=== PATIENT | male | born 1945 | race Caucasian/White ===

== ENCOUNTER 2022-06-02 00:22 | Emergency (ER) | payer MEDICARE, SELFPAY ==
[2022-06-02 00:25] VITALS: BP 158/109; PULSE 80; RESP 32; TEMP 36.5; O2SAT 95; BMI 22.2
--- NOTE | 2022-06-02 00:27 | ECG_ITS ---
[facility] Test Date: 2022-06-02 Pat Name: Everardo Valdes Department: Room: Gender: Male Rn Gastroenterology: : 1945 Requested By: Chris Lopez Order Number: [id number] Donnelly MD: Leighton Abbott M.D. Measurements Intervals [place] Rate: 83 P: 79 ND: 178 QRS: -43 QRSD: 93 T: 76 QT: 377 QTc: 443 Interpretive Statements SINUS RHYTHM WITH MARKED SINUS ARRHYTHMIA LEFT AXIS DEVIATION [QRS AXIS < -30] INCOMPLETE RIGHT BUNDLE BRANCH BLOCK [90+ ms QRS DURATION, TERMINAL R IN V1/V2, 40+ ms S IN I/aVL/V4/V5/V6] No previous ECG available for comparison Electronically Signed On 06-02-2022 13:17:51 CDT by Leighton Abbott M.D. [id number]
--- NOTE | 2022-06-02 00:48 | XRR_ITS ---
PROCEDURE INFORMATION: Exam: XR Chest Exam date and time: 06/02/2022 12:52 AM Age: 77 years old Clinical indication: Shortness of breath; Additional info: SOB TECHNIQUE: Imaging protocol: Radiologic exam of the chest. Views: 1 view. COMPARISON: No relevant prior studies available. FINDINGS: Lungs: Unremarkable. No consolidation. Tiny nodular foci left upper lobe apex; favor scarring. Pleural spaces: Unremarkable. No pleural effusion. No pneumothorax. Heart/Mediastinum: Unremarkable. No cardiomegaly. Bones/joints: Unremarkable. XR/XR chest 1V portable [id number] IMPRESSION: No acute findings.
[2022-06-02 00:54] LABS: Basophils # 0.1 10^3/uL (0.0-0.1); Basophils % 0.7 %; Eosinophils # 0.4 10^3/uL (0.0-0.8); Eosinophils % 6.3 %; Hematocrit 47.6 % (42.0-52.0); Hemoglobin 15.8 g/dL (11.7-16.6); Lymphocytes # 2.7 10^3/uL (0.8-4.8); Lymphocytes % 38.8 %; Mean Corpuscular HGB Conc 33.2 g/dL (30.0-36.0); Mean Corpuscular Hemoglobin 29.4 pg (28.0-34.0); Mean Corpuscular Volume 88.6 fl (80-94); Mean Platelet Volume 10.4 fL (7.4-10.4); Monocytes # 0.5 10^3/uL (0.2-0.9); Neutrophils # 3.24 10^3/uL (1.8-7.7); Neutrophils % 47.1 %; Nucleated Red Blood Cells % 0 %; Platelet Count 215 10^3/cmm (130-400); Red Blood Count 5.37 10^6/uL (4.1-5.3); Red Cell Distribution Width 13.2 % (12.1-15.1); White Blood Count 6.9 10^3/uL (4.0-10.0)
[2022-06-02] MEDS: ipratropium-albuterol 3 mL Neb INHALATION (01:01)
[2022-06-02 01:04] VITALS: PULSE 64; RESP 21; O2SAT 94
[2022-06-02 01:04] LABS: D Dimer 0.64 ug/mIFEU (0-0.59)
--- NOTE | 2022-06-02 01:08 | ED_ITS ---
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 He presents with increasing shortness of breath for the past few days. He uses an inhaler usually twice a day, and has gone up to 4-5 times a day in the past 3 days. He has a cough. He has some sputum production which is clear. He has been wheezing. He denies any fever. He states his chest hurts with cough. He denies significant leg swelling. MD elicited complaint: shortness of breath and cough Pertinent past history: COPD Onset (ago): day(s) Timing: constant and progressively worsening Severity: moderate Exacerbating factors: lying flat and exertion Relieving factors: bronchodilators (Minimal) Known history of: COPD and asthma Associated symptoms: Reports chest congestion, chest pain, cough and orthopnea; Deny abdominal pain, diaphoresis, fever(s), nausea or vomiting Review of Systems Const: Denies: fever(s) or diaphoresis ENMT: Denies: throat pain Card: Reports: chest pain and orthopnea Resp: Reports: dyspnea, productive cough, wheezing and chest congestion GI: Denies: abdominal pain, nausea, vomiting, diarrhea or melena Neuro: Reports: weakness in extremities (Generalized to some degree) Physical Exam Const: GENERAL APPEARANCE: cooperative, ill appearing and frail appearing NUTRITIONAL APPEARANCE: thin HENMT: COMMON NORMALS: normocephalic and atraumatic HEAD & SCALP: normocephalic and atraumatic FACE & SINUS: normal facial exam and face symmetric Eye: COMMON NORMALS: Equal, round and reactive pupils present and EOMs intact bilaterally PUPIL: Yes Equal, round and reactive pupils present Neck/C-Spine: GENERAL: Yes trachea midline Chest: CHEST: Yes Symmetrical chest wall rise Resp: EFFORT & INSPECTION: Yes tachypneic AUSCULTATION: wheezes (Slight) and diminished lung sounds Cardio: COMMON NORMALS: regular rate and regular rhythm RATE: regular rate RHYTHM: regular rhythm GI: COMMON NORMALS: Normal to inspection, nondistended, normoactive bowel sounds present and Soft to palpation PALPATION: Yes Soft to palpation Extremity: COMMON NORMALS: no pedal edema Neuro: JULIO CESAR COMA SCALE: document GCS findings [place] coma scale eye opening: Spontaneous Julio Cesar coma scale verbal response: Orientated Julio Cesar coma scale motor response: Obey commands [place] coma scale total score: 15 Psych: ACTIVITY/MOTOR BEHAVIOR: Yes appropriate eye contact SPEECH: Yes slow MOOD & AFFECT: Yes depressed mood and Yes tearful Course Vital Signs: Vital signs: Vital Signs Temperature 97.7 F 06/02/22 00:25 Pulse Rate 68 06/02/22 02:37 Respiratory Rate 20 H 06/02/22 02:37 Blood Pressure 142/67 06/02/22 02:37 Pulse Oximetry 96 06/02/22 02:37 Oxygen Delivery Me thod 06/02/22 01:04 Oxygen Flow Rate 2 06/02/22 01:04 MDM - SOB/Dyspnea Medical Decision Making 77-year-old male with a history of asthma. He feels much improved after nebulizer treatment and steroids here. He is off oxygen, satting 95 to 96%. His heart rate 65, blood pressure 140/75. His CBC is normal. His BMP is normal. His troponin was slightly elevated at 17 baseline, and did not change at 2 hours. His EKG shows a sinus rhythm with sinus arrhythmia. He has an incomplete right bundle branch block with normal intervals otherwise. There are no acute ST changes. His age-adjusted D-dimer is negative he has no infiltrates on chest x-ray. He will be allowed home, with coverage for asthma/COPD exacerbation with antibiotics, steroids, and inhalers Lab Data : 06/02/22 00:45 06/02/22 00:45 Labs/Radiology: Radiology Impressions Chest X-Ray 06/02/22 00:48 IMPRESSION: No acute findings. Laboratory Results WBC 6.9 10^3/uL (4.0-10.0) 06/02/22 00:45 RBC 5.37 10^6/uL (4.1-5.3) H 06/02/22 00:45 Hgb 15.8 g/dL (11.7-16.6) 06/02/22 00:45 Hct 47.6 % (42.0-52.0) 06/02/22 00:45 MCV 88.6 fl (80-94) 06/02/22 00:45 MCH 29.4 pg (28.0-34.0) 06/02/22 00:45 MCHC 33.2 g/dL (30.0-36.0) 06/02/22 00:45 RDW 13.2 % (12.1-15.1) 06/02/22 00:45 Plt Count 215 10^3/cmm (130-400) 06/02/22 00:45 MPV 10.4 fL (7.4-10.4) 06/02/22 00:45 Neut % (Auto) 47.1 % 06/02/22 00:45 Lymph % (Auto) 38.8 % 06/02/22 00:45 [place] % (Auto) 7.0 % 06/02/22 00:45 Eos % (Auto) 6.3 % 06/02/22 00:45 Baso % (Auto) 0.7 % 06/02/22 00:45 Neut # (Auto) 3.24 10^3/uL (1.8-7.7) 06/02/22 00:45 Lymph # (Auto) 2.7 10^3/uL (0.8-4.8) 06/02/22 00:45 [place] # (Auto) 0.5 10^3/uL (0.2-0.9) 06/02/22 00:45 Eos # (Auto) 0.4 10^3/uL (0.0-0.8) 06/02/22 00:45 Baso # (Auto) 0.1 10^3/uL (0.0-0.1) 06/02/22 00:45 Nucleated RBC % (auto) 0 % 06/02/22 00:45 Nucleated RBCs # 0.0 /100WBC 06/02/22 00:45 D-Dimer 0.64 ug/mIFEU (0-0.59) H 06/02/22 00:45 Specimen Type Arterial 06/02/22 01:18 Sample Site Radial, right 06/02/22 01:18 ABG pH 7.44 (7.35-7.45) 06/02/22 01:18 ABG pCO2 33.6 mmHg (35-45) L 06/02/22 01:18 ABG pO2 91.1 mmHg (80.0-100.0) 06/02/22 01:18 ABG HCO3 22.6 mmol/L (22-26) 06/02/22 01:18 ABG Base Excess -0.9 mmol/L (-2.0-2.0) 06/02/22 01:18 Brandon Test Pos 06/02/22 01:18 Hematocrit 46.8 % (42-52) 06/02/22 01:18 Hgb O2 Saturation 96.9 % (95-100) 06/02/22 01:18 Carboxyhemoglobin 0.7 %THgb (0.4-20.1) 06/02/22 01:18 Methemoglobin 0.7 % (0.4-1.5) 06/02/22 01:18 Total Hemoglobin 15.3 g/dL (14-18) 06/02/22 01:18 O2 Delivery Device Nc 06/02/22 01:18 O2 Liters/Min 2.0 % 06/02/22 01:18 Flat Folding Machine Operator ID [email or web address] 06/02/22 01:18 Sodium 140 mmol/L (136-145) 06/02/22 00:45 Potassium 3.8 mmol/L (3.5-5.1) 06/02/22 00:45 Chloride 103 mmol/L (98-107) 06/02/22 00:45 Carbon Dioxide 24 mmol/L (22-29) 06/02/22 00:45 Anion Gap 16.8 (5-19) 06/02/22 00:45 BUN 15 mg/dL (8-23) 06/02/22 00:45 Creatinine 0.8 mg/dL (0.7-1.2) 06/02/22 00:45 GFR Calculation Not Reportable 06/02/22 00:45 Glucose 108 mg/dL (65-115) 06/02/22 00:45 Calculated Osmolality 291 mOsm/kg (285-295) 06/02/22 00:45 Lactic Acid 1.2 mmol/L (0.5-2.2) 06/02/22 00:45 Calcium 9.4 mg/dL (8.5-10.5) 06/02/22 00:45 Total Bilirubin 0.5 mg/dL (0.15-1.2) 06/02/22 00:45 AST 29 U/L (0-40) 06/02/22 00:45 ALT 16 U/L (0-41) 06/02/22 00:45 Alkaline Phosphatase 78 U/L (40-130) 06/02/22 00:45 Troponin T Baseline 17 ng/L (0-15) H 06/02/22 00:45 Troponin T 120 Minute 16.64 ng/L (0-15) H 06/02/22 02:36 Delta Troponin T -0.36 ABS# (0-10) L 06/02/22 02:36 NT-Pro-B Natriuret Pep 53 pg/mL (0-450) 06/02/22 00:45 Total Protein 7.4 g/dL (6.6-8.7) 06/02/22 00:45 Albumin 4.6 g/dL (3.5-5.2) 06/02/22 00:45 Globulin 2.8 g/dL (1.3-4.6) 06/02/22 00:45 SARS-CoV-2 Ag (Rapid) Negative (Negative) 06/02/22 02:25 Discharge Plan Discharge Patient Disposition: Home Clinical Impression: Asthma with exacerbation Condition: Stable Prescriptions: New prednisone 20 mg tablet 40 mg PO DAILY 5 Days Qty: 10 0RF ipratropium-albuterol 20-100 mcg/actuation mist 1 puff inhalation Q6H Qty: 4 0RF doxycycline hyclate 100 mg capsule 100 mg PO BID 7 Days Qty: 14 0RF lorazepam 0.5 mg tablet 0.5 mg PO BID PRN (Reason: anxiety) Qty: 7 0RF Discharge Orders: Discharge ED (Routine); Ordered 06/02/22 Ordered By: Chris Spears Patient Instructions: Asthma Exacerbation - Adult Activity Restrictions/Additional Instructions: Medications as directed. Use the prescribed inhaler every 6 hours scheduled for the next 48 hours, then as needed. You may use your albuterol inhaler if needed 1 time between scheduled dosing of the new inhaler. Return for worsening shortness of breath despite treatment, fever greater than 100 despite treatment, worsening chest pain, mental status changes, other concerning symptoms. See your doctor this coming week. Coding Level of Care Code ED Assistant Field Hockey Coach for Zhang Fwholli Exam Comprehensive
[2022-06-02 01:10] LABS: Lactic Sepsis W/Reflex 1.2 mmol/L (0.5-2.2); Troponin(5th) Baseline 17 ng/L (0-15)
[2022-06-02 01:16] VITALS: BP 158/81; PULSE 63; RESP 24; O2SAT 99
[2022-06-02 01:18] LABS: Alanine Aminotransferase 16 U/L (0-41); Albumin Level 4.6 g/dL (3.5-5.2); Alkaline Phosphatase 78 U/L (40-130); Anion Gap 16.8 (5-19); Aspartate Amino Transferase 29 U/L (0-40); Blood Urea Nitrogen 15 mg/dL (8-23); Calcium 9.4 mg/dL (8.5-10.5); Carbon Dioxide 24 mmol/L (22-29); Chloride 103 mmol/L (98-107); Globulin 2.8 g/dL (1.3-4.6); Glucose 108 mg/dL (65-115); NT Pro B Type Natriuretic Pept 53 pg/mL (0-450); Osmolality Calculated 291 mOsm/kg (285-295); Potassium 3.8 mmol/L (3.5-5.1); Sodium 140 mmol/L (136-145); Total Bilirubin 0.5 mg/dL (0.15-1.2); Total Protein 7.4 g/dL (6.6-8.7)
[2022-06-02 01:22] LABS: ABG PCO2 33.6 mmHg (35-45); ABG PH Result 7.44 (7.35-7.45); Arterial Blood Gas Hematocrit 46.8 % (42-52); Base Excess ABG -0.9 mmol/L (-2.0-2.0); Blood Gas Allen Test Pos; Blood Gas Sample Type Arterial; Carboxyhemoglobin 0.7 %THgb (0.4-20.1); HCO3 ABG 22.6 mmol/L (22-26); HGB O2 Sat 96.9 % (95-100); Methemoglobin 0.7 % (0.4-1.5); PO2 ABG 91.1 mmHg (80.0-100.0); Total Hemoglobin 15.3 g/dL (14-18)
[2022-06-02 01:24] LABS: Blood Gas Sample Site Radial, right; Oxygen Device NC
--- NOTE | 2022-06-02 02:33 | ECG_ITS ---
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 Measurements Intervals [place] Rate: 65 P: 74 FL: 174 QRS: -16 QRSD: 98 T: 78 QT: 427 QTc: 447 Interpretive Statements SINUS RHYTHM WITH MARKED SINUS ARRHYTHMIA INCOMPLETE RIGHT BUNDLE BRANCH BLOCK [90+ ms QRS DURATION, TERMINAL R IN V1/V2, 40+ ms S IN I/aVL/V4/V5/V6] No previous ECG available for comparison Electronically Signed On 06-02-2022 13:26:06 CDT by Leighton Abbott M.D. [email or web address] [email or web address] hardin [facility] hospital.[email or web address]/[id number]
[2022-06-02 02:37] VITALS: BP 142/67; PULSE 68; RESP 20; O2SAT 96
[2022-06-02 02:56] LABS: SARS Covid-2 Antigen Negative (Negative)
[2022-06-02 03:12] LABS: Troponin 5 2HR 16.64 ng/L (0-15); Troponin 5 2HR Delta -0.36 ABS# (0-10)
[2022-06-02] MEDS: doxycycline 100 mg Tablet PO (03:35)
[2022-06-02 03:45] VITALS: BP 140/75; PULSE 68; RESP 20; O2SAT 96
== END 2022-06-02 03:40 | disposition home or self-care (01) ==
PROVIDERS: Emergency Provider Emergency Medicine
DX: J44.1 Chronic obstructive pulmonary disease with (acute) exacerbation (principal); J45.901 Unspecified asthma with (acute) exacerbation
CPT/HCPCS: 36415; 36600; 71045; 80053; 82805; 83605; 83880; 84484; 85025; 85378; 87040; 87426; 93005; 94640; 96374; 99285; J2930

== ENCOUNTER → 2023-03-19 10:15 | Outpatient (BNVA) | payer MEDICARE, SELFPAY | PROVIDERS: PCP Family Medicine; Visit Provider Family Medicine | DX: E53.8 Deficiency of other specified B group vitamins (principal); R53.81 Other malaise; R53.83 Other fatigue; R35.0 Frequency of micturition; E78.5 Hyperlipidemia, unspecified; Z13.220 Encounter for screening for lipoid disorders; Z51.81 Encounter for therapeutic drug level monitoring; E55.9 Vitamin D deficiency, unspecified | CPT/HCPCS: 80053; 80061; 82306; 82607; 84153; 84443; 85025 ==

== ENCOUNTER → 2023-04-30 14:26 | Outpatient (BNVA) | payer MEDICARE, SELFPAY | PROVIDERS: PCP Family Medicine; Visit Provider Dermatology | DX: L82.1 Other seborrheic keratosis (principal); L81.4 Other melanin hyperpigmentation; D48.5 Neoplasm of uncertain behavior of skin | CPT/HCPCS: 11102; 99203 ==

== ENCOUNTER → 2023-05-30 08:37 | Outpatient (BNVA) | payer MEDICARE, SELFPAY | PROVIDERS: PCP Family Medicine; Visit Provider Surgery | DX: K22.2 Esophageal obstruction (principal) | CPT/HCPCS: 99204 ==

== ENCOUNTER 2023-06-12 09:40 | Outpatient (CLI) | payer MEDICARE, SELFPAY ==
--- NOTE | 2023-06-12 10:00 | FL_ITS ---
WS: [id number] FL barium swallow modifd [id number] REASON FOR EXAM: Coughing and choking with oral intake. FLUOROSCOPY TIME: 2min 50 sec # OF SPOT FILMS: None TECHNIQUE: Examination was performed and supervised by the speech therapy department. The swallowing of varying consistencies of barium was evaluated with the patient in the sitting uprig ht position from the lateral projection. The swallowing was monitored fluoroscopically and video john rded. FINDINGS: The speech therapy department will render a detailed report and analysis of the swallowing. IMPRESSION: Modified barium swallow as above.
== END 2023-06-12 09:41 | disposition home or self-care (01) ==
PROVIDERS: PCP Family Medicine; Visit Provider Surgery
DX: K22.2 Esophageal obstruction (principal); R63.39 Other feeding difficulties
CPT/HCPCS: 74230; 92611

== ENCOUNTER 2024-06-07 11:03 | Observation (INO) | payer MEDICARE, SELFPAY ==
[2024-06-07] VITALS (8 sets, daily range): BP systolic 131–155; BP diastolic 63–103; PULSE 51–69; RESP 20–24; TEMP 36.4–36.7; O2SAT 94–99
--- NOTE | 2024-06-07 11:12 | XRR_ITS ---
PROCEDURE INFORMATION: Exam: XR Chest Exam date and time: 06/07/2024 11:16 AM Age: 79 years old Clinical indication: Pain; Angina pectoris; Additional info: Chest pain TECHNIQUE: Imaging protocol: Radiologic exam of the chest. Views: 1 view. Total images: 428 COMPARISON: CR XR chest 1V portable [id number] 06/02/2022 12:52 AM FINDINGS: Lungs: There is biapical interstitial thickening [id number]-right, likely related to chronic parenchymal scarring. Pleural spaces: Unremarkable. No pleural effusion. No pneumothorax. Heart/Mediastinum: Unremarkable. No cardiomegaly. Bones/joints: Unremarkable. XR/XR chest 1V portable [id number] IMPRESSION: 1. There is biapical interstitial thickening [id number]-right, likely related to chronic parenchymal scarring. 2. No acute cardiopulmonary process.
--- NOTE | 2024-06-07 11:12 | ECG_ITS ---
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 Measurements Intervals [place] Rate: 59 P: 0 DE: 0 QRS: 2 QRSD: 102 T: 75 QT: 399 QTc: 396 Interpretive Statements SINUS BRADYCARDIA WITH SINUS PAUSE Compared to ECG 06/02/2022 02:33:12 Incomplete right bundle-branch block no longer present Electronically Signed On 06-07-2024 16:06:03 CDT by Leighton Abbott M.D. [id number]
--- NOTE | 2024-06-07 11:38 | W.ED.WEAKNES ---
HPI - Weakness General: Chief complaint: Weakness Stated complaint: Dizzy, weak, nausea, a-fib Time Seen by Provider: 06/07/24 11:32 History of Present Illness: 79-year-old male presents with some progressive weakness has been on for a while. He also reports that his being fuzzy in his brain and has been getting more frequent. He also reports some episodes where he feels like he is going have a syncope event. That today it took him down patient denies any chest pain. Associated symptoms: Denies chest pain, chills, fever(s), headache(s), nausea or vomiting Review of Systems Const: Reports: fatigue and malaise; Denies: fever(s) or chills Card: Reports: pre-syncope; Denies: chest pain Resp: Denies: dyspnea or pain on inspiration GI: Denies: abdominal pain, nausea or vomiting Musc: Reports: neck pain and back pain Skin/Breast: Denies: rash Neuro: Denies: headache(s) or dizziness Psych: Reports: other (Please see HPI) PFSH ED PFSH: Medical History H/O renal calculi Surgical History No pertinent past surgical history Social History Smoking and tobacco/nicotine status: current every day tobacco/nicotine user smokeless tobacco Smokeless tobacco user: chewing tobacco Smokeless tobacco details: 1 bag lasts one week Alcohol intake: current Alcohol intake frequency: holidays/special occasions only Alcohol type: wine Substance/Drug Use: never 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 Physical Exam Const: COMMON NORMALS: no acute distress, patient oriented x3 and alert Resp: COMMON NORMALS: normal respiratory effort, No use of accessory muscles and clear to auscultation bilaterally AUSCULTATION: clear to auscultation bilaterally Cardio: RATE: bradycardic RHYTHM: abnormal rhythm GI: COMMON NORMALS: Soft to palpation and non-tender PALPATION: Yes Soft to palpation Extremity: COMMON NORMALS: normal to inspection and capillary refill normal Neuro: COMMON NORMALS: patient oriented x3, moves all extremities and no focal motor deficits SENSORIUM/ORIENTATION: Yes alert Psych: COMMON NORMALS: mental status grossly normal, Normal thought process present and cooperative THOUGHT PROCESS: Normal thought process present Skin: COMMON NORMALS: no rashes or lesions noted GENERAL SKIN EXAM: no rashes or lesions noted Course Vital Signs: Vital signs: Vital Signs Temperature 97.6 F 06/07/24 11:33 Pulse Rate 61 06/07/24 12:22 Blood Pressure 137/72 06/07/24 12:22 Pulse Oximetry 99 06/07/24 12:22 Oxygen Delivery Me thod Room Air 06/07/24 12:22 MDM - Weakness Medical Decision Making Patient's diagnostics studies were ordered reviewed and interpreted by me. Patient's EKG x 2 shows sinus bradycardia with second-degree block versus frequent atrial complexes. Patient does have increasing near syncope events. I discussed with Dr. Haney and Dr. Zhong. Patient was admitted for observation in stable condition. Lab Data 06/07/24 12:05 06/07/24 12:05 Radiology Impressions Chest X-Ray 06/07/24 11:12 IMPRESSION: 1. There is biapical interstitial thickening [id number]-right, likely related to chronic parenchymal scarring. 2. No acute cardiopulmonary process. Laboratory Results WBC 6.72 10^3/uL (3.29-11.43) 06/07/24 12:05 RBC 5.38 10^6/uL (3.85-5.65) 06/07/24 12:05 Hgb 15.90 g/dL (11.27-16.99) 06/07/24 12:05 Hct 49.5 % (37-53) 06/07/24 12:05 MCV 92.0 fl (82-101) 06/07/24 12:05 MCH 29.6 pg (27-33) 06/07/24 12:05 MCHC 32.1 g/dL (30-55) 06/07/24 12:05 RDW 13.4 % (12.1-15.1) 06/07/24 12:05 Plt Count 203 10^3/cmm (157-399) 06/07/24 12:05 MPV 10.3 fL (7.4-10.4) 06/07/24 12:05 Neut % (Auto) 63.5 % 06/07/24 12:05 Lymph % (Auto) 24.3 % 06/07/24 12:05 [place] % (Auto) 7.9 % 06/07/24 12:05 Eos % (Auto) 3.3 % 06/07/24 12:05 Baso % (Auto) 0.7 % 06/07/24 12:05 Neut # (Auto) 4.27 10^3/uL (1.8-7.7) 06/07/24 12:05 Lymph # (Auto) 1.6 10^3/uL (0.8-4.8) 06/07/24 12:05 [place] # (Auto) 0.5 10^3/uL (0.2-0.9) 06/07/24 12:05 Eos # (Auto) 0.2 10^3/uL (0.0-0.8) 06/07/24 12:05 Baso # (Auto) 0.1 10^3/uL (0.0-0.1) 06/07/24 12:05 Nucleated RBC % (auto) 0 % 06/07/24 12:05 Nucleated RBCs # 0.0 /100WBC 06/07/24 12:05 Sodium 139 mmol/L (136-145) 06/07/24 12:05 Potassium 4.2 mmol/L (3.5-5.1) 06/07/24 12:05 Chloride 103 mmol/L (98-107) 06/07/24 12:05 Carbon Dioxide 27 mmol/L (22-29) 06/07/24 12:05 Anion Gap 13.2 (5-19) 06/07/24 12:05 BUN 20 mg/dL (8-23) 06/07/24 12:05 Creatinine 0.9 mg/dL (0.7-1.2) 06/07/24 12:05 GFR Calculation Not Reportable 06/07/24 12:05 Glucose 91 mg/dL (65-115) 06/07/24 12:05 Calculated Osmolality 290 mOsm/kg (285-295) 06/07/24 12:05 Calcium 9.2 mg/dL (8.5-10.5) 06/07/24 12:05 Total Bilirubin 0.3 mg/dL (0.15-1.2) 06/07/24 12:05 AST 16 U/L (0-40) 06/07/24 12:05 ALT 10 U/L (0-41) 06/07/24 12:05 Alkaline Phosphatase 84 U/L (40-130) 06/07/24 12:05 Troponin T Baseline 13 ng/L (0-15) 06/07/24 12:05 NT-Pro-B Natriuret Pep 43 pg/mL (0-450) 06/07/24 12:05 Total Protein 6.8 g/dL (6.6-8.7) 06/07/24 12:05 Albumin 4.1 g/dL (3.5-5.2) 06/07/24 12:05 Globulin 2.7 g/dL (1.3-4.6) 06/07/24 12:05 Urine Color Yellow (Yellow) 06/07/24 12:15 Urine Appearance Slightly cloudy (CLEAR) 06/07/24 12:15 Urine pH 6 (5-7) 06/07/24 12:15 Ur Specific [place] 1.025 (1.005-1.030) 06/07/24 12:15 Urine Protein Neg (Negative) 06/07/24 12:15 Urine Glucose (UA) Norm (Normal) 06/07/24 12:15 Urine Ketones Negative (Negative) 06/07/24 12:15 Urine Blood Neg (Negative) 06/07/24 12:15 Urine Nitrate Negative (Negative) 06/07/24 12:15 Urine Bilirubin Neg (Negative) 06/07/24 12:15 Urine Urobilinogen Norm mg/dL (Negative) 06/07/24 12:15 Ur Leukocyte Esterase Negative (Negative) 06/07/24 12:15 Urine RBC 0-4 /hpf (0-2) H 06/07/24 12:15 Urine WBC 0-4 /hpf (0-5) H 06/07/24 12:15 Ur Squamous Epith Cells 0-4 /hpf (0-5) H 06/07/24 12:15 Calcium Oxalate Crystal 5-10 /hpf H 06/07/24 12:15 Amorphous Sediment 1+ /hpf 06/07/24 12:15 Urine Bacteria Trace /hpf (NONE) 06/07/24 12:15 Urine Mucus 2+ /hpf 06/07/24 12:15 All radiology interpretation(s) finalized by discharge Discharge Plan Discharge Patient Disposition: Placed in Observation Clinical Impression: Syncope, near, Bradycardia Condition: Stable Prescriptions: No Action citalopram 10 mg tablet 10 mg PO DAILY Qty: 30 6RF albuterol sulfate [ProAir HFA] 90 mcg/actuation HFA aerosol inhaler 2 puff inhalation Q6H PRN (Reason: shortness of breath or wheezing) Qty: 8.5 3RF Referrals: John Polo MD [Primary Care Provider] - Coding Level of Care Code ED Companion Caregiver for Chg Fwd Related Data Previous Rx's Medication Instructions Recorded citalopram 10 mg tablet 10 mg PO DAILY #30 tabs 08/04/23 albuterol sulfate 90 mcg/actuation 2 puff inhalation Q6H PRN 01/13/24 aerosol inhaler (ProAir HFA) shortness of breath or wheezing #8.5 grams Allergies Allergy/AdvReac Type Severity Reaction Status Date / Time No Known Allergies Allergy Verified 06/07/24 11:37
[2024-06-07 12:17] LABS: Basophils # 0.1 10^3/uL (0.0-0.1); Basophils % 0.7 %; Eosinophils # 0.2 10^3/uL (0.0-0.8); Eosinophils % 3.3 %; Hematocrit 49.5 % (37-53); Lymphocytes # 1.6 10^3/uL (0.8-4.8); Lymphocytes % 24.3 %; Mean Corpuscular HGB Conc 32.1 g/dL (30-55); Mean Corpuscular Hemoglobin 29.6 pg (27-33); Mean Platelet Volume 10.3 fL (7.4-10.4); Monocytes # 0.5 10^3/uL (0.2-0.9); Monocytes % 7.9 %; Neutrophils # 4.27 10^3/uL (1.8-7.7); Neutrophils % 63.5 %; Nucleated Red Blood Cells % 0 %; Platelet Count 203 10^3/cmm (157-399); Red Blood Count 5.38 10^6/uL (3.85-5.65); Red Cell Distribution Width 13.4 % (12.1-15.1); White Blood Count 6.72 10^3/uL (3.29-11.43)
[2024-06-07 12:39] LABS: Troponin(5th) Baseline 13 ng/L (0-15)
[2024-06-07 12:48] LABS: Alanine Aminotransferase 10 U/L (0-41); Albumin Level 4.1 g/dL (3.5-5.2); Alkaline Phosphatase 84 U/L (40-130); Anion Gap 13.2 (5-19); Aspartate Amino Transferase 16 U/L (0-40); Blood Urea Nitrogen 20 mg/dL (8-23); Calcium 9.2 mg/dL (8.5-10.5); Carbon Dioxide 27 mmol/L (22-29); Chloride 103 mmol/L (98-107); Globulin 2.7 g/dL (1.3-4.6); Glucose 91 mg/dL (65-115); NT Pro B Type Natriuretic Pept 43 pg/mL (0-450); Osmolality Calculated 290 mOsm/kg (285-295); Potassium 4.2 mmol/L (3.5-5.1); Sodium 139 mmol/L (136-145); Total Bilirubin 0.3 mg/dL (0.15-1.2); Total Protein 6.8 g/dL (6.6-8.7)
[2024-06-07 12:52] LABS: Add Urine Microscopic? YES; Bilirubin Urine Neg (Negative); Blood Urine Neg (Negative); Glucose Urine UA Norm (Normal); Ketones Urine Negative (Negative); Leukocyte Esterase Urine Negative (Negative); Nitrate Urine Negative (Negative); Protein Urine Neg (Negative); Specific Gravity, Urine 1.025 (1.005-1.030); Urine Appearance Slightly Cloudy (CLEAR); Urine Color Yellow (Yellow); Urobilinogen Urine Norm (Negative); pH Urine 6 (5-7)
[2024-06-07 12:54] LABS: Add Urine Culture? No; Amorphous Sediment Urine 1+ /hpf; Bacteria Urine TRACE /hpf; Mucus Urine 2+ /hpf; RBC Urine 0-4 /hpf (0-2); Squamous Epithelial Cell Urine 0-4 /hpf (0-5); WBC Urine 0-4 /hpf (0-5)
--- NOTE | 2024-06-07 13:15 | ECG_ITS ---
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 Measurements Intervals [place] Rate: 48 P: 60 [place]: 188 QRS: 16 QRSD: 90 T: 76 QT: 418 QTc: 373 Interpretive Statements SINUS BRADYCARDIA WITH OCCASIONAL SUPRAVENTRICULAR PREMATURE COMPLEXES Compared to ECG 06/07/2024 11:26:39 No significant changes Electronically Signed On 06-07-2024 16:08:31 CDT by Leighton Abbott M.D. [email or web address] Biotechmississippi state hospitalEquiomgrant hospitalSeno Medical Instruments, [email or web address]./store/[id number]
--- NOTE | 2024-06-07 14:16 | PM.HP ---
Providers/Chief Complaint Primary Care Provider: John Polo MD Chief Complaint: Dizzy, weak, nausea, a-fib History of Present Illness Everardo Valdes is a 79 year old male with past medical history of depression, worsening memory over the last few years presents to the ER today because of feeling dizzy and weak. After the patient when seen in [facility] with [id number] at bedside he has been having worsening weakness in his legs over the last 2 weeks specially on standing up. Today he was driving when he started feeling dizzy and lightheaded and weak and on stopping he almost passed out hence he presented to the ER. He has been feeling foggy and confused in his memory more recently for last 2 weeks. He is supposed to be only on citalopram 10 mg oral daily though as per the [id number] he has not taken the medication in the last few months. In the ER he was found to have bradycardia with heart rate going down into the low 50s with possibility of 2 :1 heart block as per the ER physician though I am not able to find the strips. Currently on examination patient's blood pressure is 140/80 mmHg with heart rate mostly in low 50s with occasional VPCs, saturating more than 95% on room air, pleasant, awake and alert with occasional episodes of confusion. Review of Systems General: Reports: 10 or more systems reviewed and unremarkable except in HPI and below Const: Denies: fever(s), chills, body aches, change in appetite, change in weight, malaise, night sweats, diaphoresis, change in sleep pattern, daytime sleepiness or snoring Eyes: Denies: change in vision, blurry vision, photophobia, eye discomfort or eye discharge ENMT: Denies: throat pain, enlarged tonsils, hoarseness, mouth pain, oral sores, dry mouth, tinnitus, nasal congestion or post nasal drip Card: Denies: chest pain, palpitations, irregular heart rhythm, edema, swelling of feet/ankles, lightheadedness, syncope, pre-syncope, dyspnea on exertion, orthopnea, leg pain with exertion or acrocyanosis Resp: Denies: dyspnea, productive cough, non-productive cough, wheezing, stridor, pain on inspiration, change in phlegm color, hemoptysis or chest congestion GI: Denies: abdominal pain, nausea, vomiting, hematemesis, coffee ground emesis, dysphagia, heartburn, diarrhea, constipation, bloating, GI cramping, change in bowel habits, pain on defecation, hematochezia or melena : Denies: flank pain, difficulty urinating, dysuria, urinary frequency, urinary urgency, urinary hesitancy, urinary dribbling, difficulty starting urination, change in urine stream, nocturia or hematuria Musc: Denies: neck pain, back pain, extremity pain, joint pain, joint swelling, joint redness, joint stiffness or limited range of motion Neuro: Denies: headache(s), numbness in extremities, weakness in extremities, sensory changes, lack of coordination, difficulty walking, frequent falls, dizziness, vertigo, confusion, Slurred speech present, difficulty communicating thoughts or seizure-like activity Psych: Denies: anxiety, depression, mood swings, panic attacks, hopelessness or irritability Endo: Denies: polyuria, polydipsia, tired all the time, cold intolerance, excessive sweating, flushing or heat intolerance Vick/Lymph: Denies: easy bruising or easy bleeding All/Imm: Denies: tongue swelling, facial swelling or acute wheezing Medications/Allergies Home Medications Medication Instructions Recorded Confirmed Last Taken Type citalopram 10 mg tablet 10 mg PO DAILY #30 tabs 08/04/23 Unknown Rx albuterol sulfate 90 mcg/actuation 2 puff inhalation Q6H PRN 01/13/24 Unknown Rx aerosol inhaler (ProAir HFA) shortness of breath or wheezing #8.5 grams Allergies Allergy/AdvReac Type Severity Reaction Status Date / Time No Known Allergies Allergy Verified 06/07/24 11:37 PFSH Acute PFSH: Medical History (Updated 06/07/24 @ 17:59 by Elton Haney MD) Depression Dementia Esophageal stricture Skin lesion H/O renal calculi Surgical History (Updated 06/07/24 @ 17:56 by Elton Haney MD) Hx of colonoscopy No pertinent past surgical history Family History (Updated 06/07/24 @ 18:15 by Elton Haney MD) Other Arrhythmia CAD (coronary artery disease) Cardiomyopathy Social History Smoking and tobacco/nicotine status: current every day tobacco/nicotine user smokeless tobacco Smokeless tobacco user: chewing tobacco Smokeless tobacco details: 1 bag lasts one week Alcohol intake: current Alcohol intake frequency: holidays/special occasions only Alcohol type: wine Substance/Drug Use: never 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 Vitals/I&O/Wt Last Vital Signs Temp 97.6 F 06/07/24 11:33 Pulse 61 06/07/24 12:22 BP 137/72 06/07/24 12:22 Pulse Ox 99 06/07/24 12:22 O2 Del Method Room Air 06/07/24 12:22 Physical Exam Narrative: General: No acute distress, AO x3 HEENT: PERRLA, pupils bilaterally equal and reactive Chest: Normal vesicular breath sounds, no added sounds, equal good air entry bilaterally CVS: S1-S2 regular, no murmurs, no tachycardia, no gallops, no rubs Abdomen: Soft, nontender, no organomegaly, bowel sounds present Neuro: No focal deficits, no facial deformity, AO x3, power 5/5 in all limbs Data 06/07/24 12:05 06/07/24 12:05 A&P Assessment and plan (1) Bradycardia: Symptomatic with episodes of presyncope and syncope. Admit with telemetry. Appreciate normal electrolytes. Check urine drug screen, check TSH. Appreciate recent normal TSH levels. Cycle troponins, check echocardiogram. Target heart rate over 50 bpm with mean artery pressure was 65. If needed will start on dopamine. Cardiology consulted from ER. (2) Syncope, near: Most likely in setting of bradycardia. Fall precaution Treatment as above. Plan Continue with chronic home dose of citalopram. Cardiac diet Protonix for PUD prophylaxis Normal saline at 50 cc/h. Heparin 5000 Q12 hourly for DVT prophylaxis CODE STATUS: Discussed in detail with the patient. He would not want a return of heroic measures to keep himself alive. Limited resuscitation. He is okay with pacemaker if needed though. Attestations Medical Necessity Statement*: Admit under observation for further evaluation and management of symptomatic bradycardia Diagnoses Bradycardia R00.1 Syncope, near R55
[2024-06-07 14:53] LABS: Amphetamines Screen Urine Negative (Negative); Barbiturates Screen Urine Negative (Negative); Benzodiazepines Screen Urine Negative (Negative); Cocaine Screen Urine Negative (Negative); Opiate Screen Urine Negative (Negative); PCP Screen Urine Negative (Negative); THC Screen Urine Negative (Negative)
[2024-06-07 14:56] LABS: D Dimer 0.63 ug/mLFEU (0-0.59)
[2024-06-07 15:06] LABS: Procalcitonin 0.05 ng/mL (0-0.5)
--- NOTE | 2024-06-07 17:31 | USCV_ITS ---
Everardo Valdes Age: 79 Gender: M : 1945 Exam Date: 06/07/2024 19:23 Ordering Phys: Elton Haney MD Technologist: Exam Location: [facility] [place] Indication: cp murmur BP: 155 / 103 HR: 60 Rhythm: Sinus Technical Quality: Adequate MEASUREMENTS (Male / Female) Normal Values 2D ECHO LV Diastolic Diameter PLAX 4.7 cm 4.2 - 5.9 / 3.9 - 5.3 cm IVS Diastolic Thickness 1.3 cm 0.6 - 1.0 / 0.6 - 0.9 cm IVS Systolic Thickness 1.6 cm LVPW Diastolic Thickness 1.1 cm 0.6 - 1.0 / 0.6 - 0.9 cm LVPW Systolic Thickness 1.5 cm LVOT Diameter 2.0 cm LV Ejection Fraction 2D Teich 54.7 % LV Ejection Fraction MOD 4C 59.7 % LA Diameter 2.9 cm RA Systolic Volume 4C AL 33.5 ml RA Systolic Volume 4C MOD 32.8 ml IVC Diameter 1.6 cm M-MODE MV E Point Septal Separation 1.3 cm DOPPLER AV Peak Velocity 260.0 cm/s LVOT Peak Velocity 81.0 cm/s AV Area Cont Eq vti 1.0 cm squared AV Area Cont Eq pk 1.0 cm squared MV Peak Velocity 103.0 cm/s MV Area PHT 2.5 cm squared TR Peak Velocity 181.0 cm/s TR Peak Gradient 13.1 mmHg TV Peak E Velocity 95.0 cm/s Right Atrial Pressure 3.0 mmHg Pulmonary Artery Systolic Pressu 16.1 mmHg PV Peak Velocity 95.0 cm/s FINDINGS Left Ventricle Normal left ventricular size and systolic function, EF 57%. No regional wall motion abnormalities. Mild left ventricular hypertrophy. Right Ventricle The right ventricle is normal in size and function. Right Atrium The right atrium is normal in size. Left Atrium The left atrium is normal in size. Mitral Valve No gross abnormalities noted Aortic Valve Moderate aortic valve calcification. Moderate aortic valve stenosis, mean gradient 12 mmHg, ANDREI 1 cm squared. Peak velocity of 2.6 m/s.trace to mild aortic valve regurgitation. Tricuspid Valve Trace tricuspid valve regurgitation. Estimated pulmonary artery peak systolic pressure within normal limits Pulmonic Valve Pulmonic valve not well visualized. Pericardium Normal pericardium without effusion. Aorta Normal ascending aorta dimension. IVC Normal inferior vena cava. CONCLUSIONS Normal left ventricular size and systolic function, EF 57%. No regional wall motion abnormalities. Mild left ventricular hypertrophy. Moderate aortic valve calcification. Moderate aortic valve stenosis, mean gradient 12 mmHg, ANDREI 1 cm squared. Peak velocity of 2.6 m/s.trace to mild aortic valve regurgitation. There is no pericardial effusion. There are no intracardiac masses. Trace tricuspid valve regurgitation. Estimated pulmonary artery peak systolic pressure within normal limits. No similar previous studies are available for comparison Dr Lino Fernandes MD [facility] (Electronically Signed) Final Date: 08 June 2024 13:40 S
--- NOTE | 2024-06-07 18:14 | ECG_ITS ---
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 Measurements Intervals Patriot Rate: 56 P: 75 ID: [id number] QRS: -49 QRSD: 90 T: 57 QT: 443 QTc: 428 Interpretive Statements SINUS BRADYCARDIA WITH FREQUENT SUPRAVENTRICULAR PREMATURE COMPLEXES LEFT AXIS DEVIATION [QRS AXIS < -30] Compared to ECG 06/07/2024 13:15:01 Left-axis deviation now present Electronically Signed On 06-08-2024 7:59:08 CDT by Leighton Abbott M.D. [id number]
[2024-06-07] MEDS: heparin 5,000 unit/mL INJ 1 mL 5000 UNIT SUBCUT (18:28)
[2024-06-07] MEDS: sodium chloride 0.9% 1,000 ML 50 ML IV (18:30)
[2024-06-07 19:46] LABS: Iron 72 ug/dL (59-158); Percent Saturation 25.5 % (20-50); Thyroid Stimulating Hormone 2.82 uIU/mL (0.27-4.20); Total Iron Binding Capacity 282 mcg/dl; Unsaturated Iron Binding 210 ug/dL (112-347); Vitamin B12 518 pg/mL (232-1245)
--- NOTE | 2024-06-07 20:21 | P.CONIM_ITS ---
Providers/Reason For Consult 2 Consulting Physician/Specialty*: My name/cardiology Reason for Consult*: Bradycardia/dizziness/irregular heartbeat Requesting Physician: 79-year-old male past medical history si gnificant for no major medical problem except history of depression has been struggling with dizziness multiple episodes of feeling of presyncope noted to have irregular heartbeat and heart rate ranges from 50s to 60s. Patient has noticed worsening of shortness of breath as well recently. Occasionally while sitting he feels he is going to blackout. Otherwise denies chest pain PND orthopnea and syncope. Twelve-lead EKG showed frequent premature atrial contraction with compensatory pause no heart block noted during patient's stay on the telemetry in the ER. He was admitted for observation. Attending Physician: Elton Haney MD Primary Care Provider: John Polo MD History of Present Illness History of Present Illness Everardo Valdes is a 79 year old male Medications/Allergies Home Medications Medication Instructions Recorded Confirmed Last Taken Type citalopram 10 mg tablet 10 mg PO DAILY #30 tabs 08/04/23 Unknown Rx albuterol sulfate 90 mcg/actuation 2 puff inhalation Q6H PRN 01/13/24 Unknown Rx aerosol inhaler (ProAir HFA) shortness of breath or wheezing #8.5 grams Allergies Allergy/AdvReac Type Severity Reaction Status Date / Time No Known Allergies Allergy Verified 06/07/24 11:37 Current Medications Generic Name Dose Route Start Last Admin Trade Name Freq PRN Reason Stop Dose Admin Heparin Sodium (Porcine) 5,000 unit 06/07/24 17:31 06/07/24 18:28 Heparin 5,000 Unit/Ml Inj 1 Ml SUBCUT 5,000 unit Q12H MARIA ELENA Administration Sodium Chloride 1,000 mls @ 50 mls/hr 06/07/24 17:31 06/07/24 18:30 Sodium Chloride 0.9% IV 50 mls/hr .Q20H MARIA ELENA Administration PFSH Acute 2 PFSH: Medical History (Updated 06/07/24 @ 17:59 by Elton Haney MD) Depression Dementia Esophageal stricture Skin lesion H/O renal calculi Surgical History (Updated 06/07/24 @ 17:56 by Elton Haney MD) Hx of colonoscopy No pertinent past surgical history Family History (Updated 06/07/24 @ 18:15 by Elton Haney MD) Other Arrhythmia CAD (coronary artery disease) Cardiomyopathy Social History Smoking and tobacco/nicotine status: current every day tobacco/nicotine user smokeless tobacco Smokeless tobacco user: chewing tobacco Smokeless tobacco details: 1 bag lasts one week Alcohol intake: current Alcohol intake frequency: holidays/special occasions only Alcohol type: wine Substance/Drug Use: never 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 HEART: Irregular S1 and S2. No murmur, rub or gallop. LUNGS: Clear to auscultate bilaterally. CENTRAL NERVOUS SYSTEM: Grossly nonfocal. EXTREMITIES: Lower extremities without edema bilaterally. Data 06/07/24 12:05 06/07/24 12:05 A&P Assessment and plan (1) Bradycardia: Patient may have underlying conduction abnormality however currently heart rate stays into 50s to 60s, will rule out chronotropic incompetence with treadmill stress test tomorrow based upon that further plan will advise (2) Syncope, near: Would like to rule out intermittent heart block patient is not on irina angie we will monitor overnight. Coding Level of Care Code Acute Code for [facility] Fwd Diagnoses Bradycardia R00.1 Syncope, near R55
[2024-06-08] VITALS: BP 115/77; PULSE 75; RESP 20; TEMP 36.8; O2SAT 90
--- NOTE | 2024-06-08 | ECG_ITS ---
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 Interpretive Statements NAME OF STUDY: TREADMILL STRESS TEST INDICATION: [BRADYCARDIA, ] EXERCISE DATA: The patient was exercised by Mehrdad protocol. Baseline heart rate was 83 beats per minute. Baseline blood pressure was 146/76 millimeters of mercury. Maximal predicted heart rate was 142 beats per minute. Maximum heart rate achieved was 126, which was 88% of the maximum predicted heart rate. Maximum blood pressure was 170/84 millimeters of mercury. Total exercise time was 4 minutes and 3 seconds. Maximum METs achieved was 7. The reason for ending the test was completion of protocol. The patient complained of shortness of breath during the stress test, which then resolved at the end of the test. ELECTROCARDIOGRAM: BASELINE: Showed sinus rhythm, normal axis, no significant ST-T changes at the baseline noted. [] EXERCISE: At the peak exercise level, [] No significant ST-T changes suggestive of ischemia noted. [] RECOVERY: During the recovery period, heart rate dropped appropriately. No significant ST-T changes in the recovery suggestive of ischemia noted. PVCs were seen[] CONCLUSION: 1. Exercise capacity is fair. 2. Heart rate response was appropriate 3. Blood pressure response was appropriate 4. Symptoms not suggestive of ischemia. 5. Stress test not suggestive of ischemia. Electronically Signed On 06-08-2024 9:15:07 CDT by Leighton Abbott M.D. [id number]
[2024-06-08 04:00] VITALS: BP 147/75; PULSE 57; RESP 23; TEMP 36.4; O2SAT 99
[2024-06-08 04:03] LABS: Basophils # 0.1 10^3/uL (0.0-0.1); Basophils % 0.8 %; Eosinophils # 0.3 10^3/uL (0.0-0.8); Eosinophils % 4.1 %; Hematocrit 48.1 % (37-53); Lymphocytes # 2.3 10^3/uL (0.8-4.8); Lymphocytes % 30.3 %; Mean Corpuscular HGB Conc 32.4 g/dL (30-55); Mean Corpuscular Hemoglobin 30.1 pg (27-33); Mean Corpuscular Volume 92.7 fl (82-101); Mean Platelet Volume 10.9 fL (7.4-10.4); Monocytes # 0.5 10^3/uL (0.2-0.9); Monocytes % 7.2 %; Neutrophils % 57.5 %; Nucleated Red Blood Cells % 0 %; Platelet Count 195 10^3/cmm (157-399); Red Blood Count 5.19 10^6/uL (3.85-5.65); Red Cell Distribution Width 13.3 % (12.1-15.1); White Blood Count 7.49 10^3/uL (3.29-11.43)
[2024-06-08 04:23] LABS: Chol HDL Ratio 2.69 mg/dL (1.0-5.00); Cholesterol 175 mg/dL (0-200); HDL Cholesterol 65 mg/dL (60-100); LDL Cholesterol Calculated 96 mg/dL (50-129); LDL HDL Ratio 1.48 RATIO (0.00-3.22); Triglycerides 69 mg/dL (0-150)
[2024-06-08 04:28] LABS: Alanine Aminotransferase 10 U/L (0-41); Albumin Level 3.8 g/dL (3.5-5.2); Alkaline Phosphatase 73 U/L (40-130); Blood Urea Nitrogen 18 mg/dL (8-23); Calcium 8.7 mg/dL (8.5-10.5); Carbon Dioxide 21 mmol/L (22-29); Chloride 106 mmol/L (98-107); Globulin 2.6 g/dL (1.3-4.6); Glucose 84 mg/dL (65-115); Magnesium 2.1 mg/dL (1.7-2.3); Osmolality Calculated 287 mOsm/kg (285-295); Sodium 138 mmol/L (136-145); Total Bilirubin 0.6 mg/dL (0.15-1.2); Total Protein 6.4 g/dL (6.6-8.7)
[2024-06-08 04:32] LABS: Anion Gap 15.5 (5-19); Aspartate Amino Transferase 20 U/L (0-40); Potassium 4.5 mmol/L (3.5-5.1)
[2024-06-08 04:39] LABS: Folate Level 12.9 ng/mL (4.5-32.2)
[2024-06-08 04:43] LABS: Estmated Average Glucose 114; Hemoglobin A1C 5.6 % (4.0-6.0)
[2024-06-08] MEDS: heparin 5,000 unit/mL INJ 1 mL 5000 UNIT SUBCUT (06:02)
[2024-06-08 07:18] VITALS: BP 136/83; PULSE 94
[2024-06-08 07:56] VITALS: BP 151/88; PULSE 63; RESP 18; TEMP 36.7; O2SAT 95
[2024-06-08] MEDS: citalopram 20 mg Tablet 10 MG PO (08:29)
[2024-06-08] MEDS: pantoprazole DR 40 mg Tablet PO (08:32)
[2024-06-08 09:20] VITALS: BP 114/82; BP 138/69; BP 152/68; PULSE 65; PULSE 66; PULSE 80
--- NOTE | 2024-06-08 09:24 | PC.CHAP ---
Pastoral Care Encounter/Spiritual Assessment Type of Contact [] Declined cryptozoologist visit [] Patient/Family/Request visit [] Outpatient visit [] Follow-up visit [] Physician referral [] Code/Alert [x] Routine visit [] Staff referral [] Actively dying [] Patient sleeping [] Family support [] [] Out of room [] Palliative care [] [] Receiving care in room [] Pre-surgical visit [] Trauma [] Long length of stay [] ICU visit [x] Other:patient is of Latter [employer] mirian. Relational/Emotional Strength [x] Patient feels connected with others/family/visitors/staff [] Distress [] Loneliness/isolation [] Abandonment Spirituality of Patient [x] Person of Mirian [x] Attends Yarsanism of their Mirian [] Believes in Prayer [x] Reads Bible or Worship materials [] There are Spiritual issues to be addressed Dressage Judge Interventions [] Prayer [x] Active listening [x] Non-anxious presence [x] Spiritual/emotional support [] Crisis/trauma care [] Spiritual counseling [] Bereavement support [] Provided bereavement packet [] Provided Bible/devotional materials [] Provided toy/stuffed animal, coloring book to patient or family member [] Provided Communion [] Anointing/[place] [] Salvation [x] Completed spiritual assessment [] Other: Impact on Illness or Injury [] Angry [] Fearful [] Anxious [] Often cries [] Exhaustion [] Unable to work [] Unable to attend scientologist [] Unable to walk/stand [] Unable to read [] Unable to drive [] Unable to eat/drink [] Unable to sleep [] Unable to be with family [] Patient intubated [] Other: Summary Time spent with patient 5 min
--- NOTE | 2024-06-08 09:56 | PM.DCS ---
Discharge Providers Date of Admission: 06/07/24 15:48 Date of Discharge: June 08, 2024 Attending Provider at Admission: Elton Haney MD Attending Provider at Discharge: Elton Haney MD Primary Care Provider: John Polo MD Diagnoses at Discharge Discharge Diagnosis (1) Bradycardia: Status: Acute (2) Syncope, near: Status: Acute (3) Aortic valve stenosis, moderate: Status: Acute Reason for Visit Reason for Visit: Dizzy, weak, nausea, a-fib Hospital Course Hospital Course Everardo Valdes is a 79 year old male with past medical history of depression, worsening memory over the last few years presents to the ER today because of feeling dizzy and weak. After the patient when seen in [facility] with [id number] at bedside he has been having worsening weakness in his legs over the last 2 weeks specially on standing up. Today he was driving when he started feeling dizzy and lightheaded and weak and on stopping he almost passed out hence he presented to the ER. He has been feeling foggy and confused in his memory more recently for last 2 weeks. He is supposed to be only on citalopram 10 mg oral daily though as per the [id number] he has not taken the medication in the last few months. In the ER he was found to have bradycardia with heart rate going down into the low 50s with possibility of 2 :1 heart block as per the ER physician though I am not able to find the strips. Currently on examination patient's blood pressure is 140/80 mmHg with heart rate mostly in low 50s with occasional VPCs, saturating more than 95% on room air, pleasant, awake and alert with occasional episodes of confusion. Patient was monitored overnight during hospitalization telemetry. Cardiology was consulted and he underwent echocardiogram and treadmill stress test. Treadmill stress test showed appropriate heart rate response without any signs of ischemia. Echocardiogram showed EF of 57% with mild LVH, moderate aortic calcification with moderate aortic valve stenosis with a mean gradient of 12 mmHg with trace TR. Orthostatic blood pressures during hospitalization remain negative. He has been discharged in hemodynamically stable condition on event monitor with advised to follow-up with cardiology and his PCP as an outpatient. Physical Exam Narrative: General: No acute distress, AO x3 HEENT: PERRLA, pupils bilaterally equal and reactive Chest: Normal vesicular breath sounds, no added sounds, equal good air entry bilaterally CVS: S1-S2 regular, no murmurs, no tachycardia, no gallops, no rubs Abdomen: Soft, nontender, no organomegaly, bowel sounds present Neuro: No focal deficits, no facial deformity, AO x3, power 5/5 in all limbs Discharge Data Studies Completed and Pending Completed Studies During Hospitalization Category Date Time Status Cardiac Stress Test Request Routine Exams 06/08/24 06:00 Completed XR chest 1V portable [id number] Urgent Exams 06/07/24 11:12 Completed Pending at discharge Category Date Time Status CV. echo complete* [id number] Routine Ultrasound 06/07/24 17:31 Taken Radiology Impressions Chest X-Ray 06/07/24 11:12 IMPRESSION: 1. There is biapical interstitial thickening [id number], likely related to chronic parenchymal scarring. 2. No acute cardiopulmonary process. Cardiac treadmill stress test ELECTROCARDIOGRAM: BASELINE: Showed sinus rhythm, normal axis, no significant ST-T changes at the baseline noted. [] EXERCISE: At the peak exercise level, [] No significant ST-T changes suggestive of ischemia noted. [] RECOVERY: During the recovery period, heart rate dropped appropriately. No significant ST-T changes in the recovery suggestive of ischemia noted. PVCs were seen[] CONCLUSION: 1. Exercise capacity is fair. 2. Heart rate response was appropriate 3. Blood pressure response was appropriate 4. Symptoms not suggestive of ischemia. 5. Stress test not suggestive of ischemia. Echocardiogram: CONCLUSIONS Normal left ventricular size and systolic function, EF 57%. No regional wall motion abnormalities. Mild left ventricular hypertrophy. Moderate aortic valve calcification. Moderate aortic valve stenosis, mean gradient 12 mmHg, ANDREI 1 cm squared. Peak velocity of 2.6 m/s.trace to mild aortic valve regurgitation. There is no pericardial effusion. There are no intracardiac masses. Trace tricuspid valve regurgitation. Estimated pulmonary artery peak systolic pressure within normal limits. No similar previous studies are available for comparison Dr Lino Fernandes MD [facility] (Electronically Signed) Final Date: 08 June 2024 13:40 Laboratory Results WBC 7.49 10^3/uL (3.29-11.43) 06/08/24 03:35 RBC 5.19 10^6/uL (3.85-5.65) 06/08/24 03:35 Hgb 15.60 g/dL (11.27-16.99) 06/08/24 03:35 Hct 48.1 % (37-53) 06/08/24 03:35 MCV 92.7 fl (82-101) 06/08/24 03:35 MCH 30.1 pg (27-33) 06/08/24 03:35 MCHC 32.4 g/dL (30-55) 06/08/24 03:35 RDW 13.3 % (12.1-15.1) 06/08/24 03:35 Plt Count 195 10^3/cmm (157-399) 06/08/24 03:35 MPV 10.9 fL (7.4-10.4) H 06/08/24 03:35 Neut % (Auto) 57.5 % 06/08/24 03:35 Lymph % (Auto) 30.3 % 06/08/24 03:35 [place] % (Auto) 7.2 % 06/08/24 03:35 Eos % (Auto) 4.1 % 06/08/24 03:35 Baso % (Auto) 0.8 % 06/08/24 03:35 Neut # (Auto) 4.30 10^3/uL (1.8-7.7) 06/08/24 03:35 Lymph # (Auto) 2.3 10^3/uL (0.8-4.8) 06/08/24 03:35 [place] # (Auto) 0.5 10^3/uL (0.2-0.9) 06/08/24 03:35 Eos # (Auto) 0.3 10^3/uL (0.0-0.8) 06/08/24 03:35 Baso # (Auto) 0.1 10^3/uL (0.0-0.1) 06/08/24 03:35 Nucleated RBC % (auto) 0 % 06/08/24 03:35 Nucleated RBCs # 0.0 /100WBC 06/08/24 03:35 D-Dimer 0.63 ug/mLFEU (0-0.59) H 06/07/24 12:05 Sodium 138 mmol/L (136-145) 06/08/24 03:35 Potassium 4.5 mmol/L (3.5-5.1) 06/08/24 03:35 Chloride 106 mmol/L (98-107) 06/08/24 03:35 Carbon Dioxide 21 mmol/L (22-29) L 06/08/24 03:35 Anion Gap 15.5 (5-19) 06/08/24 03:35 BUN 18 mg/dL (8-23) 06/08/24 03:35 Creatinine 0.8 mg/dL (0.7-1.2) 06/08/24 03:35 GFR Calculation Not Reportable 06/08/24 03:35 Glucose 84 mg/dL (65-115) 06/08/24 03:35 Estimat Average Glucose 114 06/08/24 03:35 Hemoglobin A1c 5.6 % (4.0-6.0) 06/08/24 03:35 Calculated Osmolality 287 mOsm/kg (285-295) 06/08/24 03:35 Calcium 8.7 mg/dL (8.5-10.5) 06/08/24 03:35 Phosphorus 3.0 mg/dL (2.5-4.5) 06/08/24 03:35 Magnesium 2.1 mg/dL (1.7-2.3) 06/08/24 03:35 Iron 72 ug/dL (59-158) 06/07/24 17:58 TIBC 282 mcg/dl 06/07/24 17:58 % Saturation 25.5 % (20-50) 06/07/24 17:58 Unsat Iron Binding 210 ug/dL (112-347) 06/07/24 17:58 Total Bilirubin 0.6 mg/dL (0.15-1.2) 06/08/24 03:35 AST 20 U/L (0-40) 06/08/24 03:35 ALT 10 U/L (0-41) 06/08/24 03:35 Alkaline Phosphatase 73 U/L (40-130) 06/08/24 03:35 Troponin T Baseline 13 ng/L (0-15) 06/07/24 12:05 Troponin T 120 Minute 12.50 ng/L (0-15) 06/07/24 14:16 Delta Troponin T -0.50 ABS# (0-10) L 06/07/24 14:16 Troponin T Hi Sens 6Hr 10.80 ng/L (0-15) 06/07/24 17:58 Troponin T Hi Sens 6Hr Delta -2.20 ng/L (0-12) L 06/07/24 17:58 NT-Pro-B Natriuret Pep 43 pg/mL (0-450) 06/07/24 12:05 Total Protein 6.4 g/dL (6.6-8.7) L 06/08/24 03:35 Albumin 3.8 g/dL (3.5-5.2) 06/08/24 03:35 Globulin 2.6 g/dL (1.3-4.6) 06/08/24 03:35 Triglycerides 69 mg/dL (0-150) 06/08/24 03:35 Cholesterol 175 mg/dL (0-200) 06/08/24 03:35 LDL Cholesterol, Calc 96 mg/dL (50-129) 06/08/24 03:35 HDL Cholesterol 65 mg/dL (60-100) 06/08/24 03:35 LDL/HDL Ratio 1.48 RATIO (0.00-3.22) 06/08/24 03:35 Cholesterol/HDL Ratio 2.69 mg/dL (1.0-5.00) 06/08/24 03:35 Vitamin B12 518 pg/mL (232-1245) 06/07/24 17:58 Folate 12.9 ng/mL (4.5-32.2) 06/08/24 03:35 Procalcitonin 0.05 ng/mL (0-0.5) 06/07/24 12:05 TSH 2.82 uIU/mL (0.27-4.20) 06/07/24 17:58 Urine Color Yellow (Yellow) 06/07/24 12:15 Urine Appearance Slightly cloudy (CLEAR) 06/07/24 12:15 Urine pH 6 (5-7) 06/07/24 12:15 Ur Specific [place] 1.025 (1.005-1.030) 06/07/24 12:15 Urine Protein Neg (Negative) 06/07/24 12:15 Urine Glucose (UA) Norm (Normal) 06/07/24 12:15 Urine Ketones Negative (Negative) 06/07/24 12:15 Urine Blood Neg (Negative) 06/07/24 12:15 Urine Nitrate Negative (Negative) 06/07/24 12:15 Urine Bilirubin Neg (Negative) 06/07/24 12:15 Urine Urobilinogen Norm mg/dL (Negative) 06/07/24 12:15 Ur Leukocyte Esterase Negative (Negative) 06/07/24 12:15 Urine RBC 0-4 /hpf (0-2) H 06/07/24 12:15 Urine WBC 0-4 /hpf (0-5) H 06/07/24 12:15 Ur Squamous Epith Cells 0-4 /hpf (0-5) H 06/07/24 12:15 Calcium Oxalate Crystal 5-10 /hpf H 06/07/24 12:15 Amorphous Sediment 1+ /hpf 06/07/24 12:15 Urine Bacteria Trace /hpf (NONE) 06/07/24 12:15 Urine Mucus 2+ /hpf 06/07/24 12:15 Urine Opiates Screen Negative ng/mL (Negative) 06/07/24 12:15 Ur Barbiturates Screen Negative ng/mL (Negative) 06/07/24 12:15 Ur Phencyclidine Scrn Negative ng/mL (Negative) 06/07/24 12:15 Ur Amphetamines Screen Negative ng/mL (Negative) 06/07/24 12:15 U Benzodiazepines Scrn Negative ng/mL (Negative) 06/07/24 12:15 Urine Cocaine Screen Negative ng/mL (Negative) 06/07/24 12:15 U Marijuana (THC) Screen Negative ng/mL (Negative) 06/07/24 12:15 Vitals Last Vital Signs Temp 98.0 F 06/08/24 07:56 Pulse 65 06/08/24 09:20 Resp 18 06/08/24 07:56 BP 152/68 06/08/24 09:20 Pulse Ox 95 06/08/24 07:56 O2 Del Method Room Air 06/08/24 07:56 Discharge Plan Discharge Patient Disposition: Home Condition: Stable Prescriptions: New citalopram 20 mg Tablet 10 mg PO DAILY Qty: 30 0RF Continued albuterol sulfate [ProAir HFA] 90 mcg/actuation HFA aerosol inhaler 2 puff inhalation Q6H PRN (Reason: shortness of breath or wheezing) Qty: 8.5 3RF Discharge Orders: Discharge Order (Routine); Ordered 06/08/24 Ordered By: Elton Haney Other Ambulatory Orders: MCT/Event Monitor 21 Days (Routine) Timeframe: 1 Week Facility: [facility] - Location: Radiology Ordered By: Elton Haney Referrals: Cynthia Mendoza FNP [Nurse Practitioner] - 06/16/24 3:00 pm (Scheduled on Jun 10, 2024 @ 10:00am for 21 day event monitor) John Polo MD [Primary Care Provider] - 06/09/24 10:10 am Discharge Diet: Cardiac Discharge Activity: Resume usual activity and Increase activity as tolerated Patient Instructions: Bradycardia, Citalopram (By mouth), Syncope, Opioid Safety Activity Restrictions/Additional Instructions: Please follow-up with a primary care provider within next 1 week. Please follow-up with cardiology department within next 2 weeks for results of event monitor. Discharge Attestations Time Spent in Discharge Care*: greater than 30 min Specific Discharge Activities: educating patient, discussing with pcp/other providers, discussing with human services case manager/social workers/dc planners, documenting/other paperwork and evaluating patient/reviewing data Status at Discharge: Cognitive status at discharge: mildly impaired cognition, Behavioral status at discharge: cooperative, Functional status at discharge: independent ambulation, Overall status at discharge: patient is back to baseline Quality Metrics Clinical Quality Measures [ No reported AMI, CVA or VTE this stay] Coding Level of Care Code 67382 Total time (in minutes) for Discharge: 60 Diagnoses Bradycardia R00.1 Syncope, near R55 Aortic valve stenosis, moderate I35.0
--- NOTE | 2024-06-08 10:22 | P.PN_ITS ---
Subjective 2 Subjective: No significant bradycardia noted patient had PACs with compensatory pauses, stress test was not suggestive of ischemia and chronotropic competence was present Vitals/I&O/Wt Last Vital Signs Temp 98.0 F 06/08/24 07:56 Pulse 65 06/08/24 09:20 Resp 18 06/08/24 07:56 BP 152/68 06/08/24 09:20 Pulse Ox 95 06/08/24 07:56 O2 Del Method Room Air 06/08/24 07:56 Weight last 48 hrs Weight 156 lb Physical Exam 2 Const: OTHER: GENERAL: Patient is alert, awake and oriented x3. HEART: Irregular S1 and S2. No murmur, rub or gallop. LUNGS: Clear to auscultate bilaterally. CENTRAL NERVOUS SYSTEM: Grossly nonfocal. EXTREMITIES: Lower extremities without edema bilaterally. Data 06/08/24 03:35 06/08/24 03:35 A&P Assessment and plan (1) Bradycardia: No significant bradycardia/heart block noted, chronotropically competent no ischemia on stress test. At this point will discharge patient with monitor. (2) Syncope, near: Possible vagal or orthostatic syncope however patient has moderate aortic stenosis, advise transesophageal echocardiogram can be done as an outpatient to assess aortic valve by planimetry. Will follow-up as an outpatient. (3) Aortic stenosis: Moderate aortic valve stenosis continue to monitor as an outpatient, may further be assessed to transesophageal echocardiogram. Once patient will come back to the clinic after reviewing event monitor will ask for NIGEL as an outpatient Attestations 2 Medical Necessity Statement*: From a cardiovascular perspective patient can be discharged Coding Level of Care Code Acute Code for [facility] Diagnoses Bradycardia R00.1 Syncope, near R55 Aortic stenosis I35.0
[2024-06-08 10:30] VITALS: BP 151/88; PULSE 63; RESP 18; TEMP 36.7; O2SAT 95
== END 2024-06-08 13:14 | disposition home or self-care (01) ==
LOC: ER 14:30 → CSU 15:48
PROVIDERS: Physician Assistant; Admitting Provider Student in an Organized Health Care Education/Training Program; Emergency Provider Student in an Organized Health Care Education/Training Program; PCP Family Medicine; Visit Provider Student in an Organized Health Care Education/Training Program
DX: R00.1 Bradycardia, unspecified (principal); R55 Syncope and collapse; I35.0 Nonrheumatic aortic (valve) stenosis; F32.A Depression, unspecified; I44.1 Atrioventricular block, second degree; F17.220 Nicotine dependence, chewing tobacco, uncomplicated; R41.3 Other amnesia; F03.90 Unspecified dementia, unspecified severity, without behavioral disturbance, psychotic disturbance, mood disturbance, and anxiety
CPT/HCPCS: 36415; 71045; 80053; 80061; 80306; 81001; 82607; 82746; 83036; 83540; 83550; 83735; 83880; 84100; 84145; 84443; 84484; 85025; 85378; 93005; 93017; 93306; 94664; 96372; 99285; G0378; J1644; J7030

== ENCOUNTER → 2024-07-22 12:55 | Outpatient (BNVA) | payer MEDICARE, SELFPAY | PROVIDERS: PCP Family Medicine; Visit Provider Nurse Practitioner Family | DX: I48.91 Unspecified atrial fibrillation (principal); R00.1 Bradycardia, unspecified; I35.0 Nonrheumatic aortic (valve) stenosis; K59.00 Constipation, unspecified; R42 Dizziness and giddiness; R53.1 Weakness | CPT/HCPCS: 99214 ==

== ENCOUNTER 2024-12-18 01:31 | Emergency (ER) | payer MEDICARE, SELFPAY ==
--- NOTE | 2024-12-18 01:43 | ECG_ITS ---
[employer] Test Date: 2024-12-18 Pat Name: Everardo Valdes Department: Room: Gender: Male Assistant Corporation Counsel: : 1945 Requested By: Robi Cronin Order Number: [id number] Reading MD: Measurements Intervals [place] Rate: 82 P: 79 VT: 161 QRS: 44 QRSD: 94 T: 76 QT: 389 QTc: 456 Interpretive Statements SINUS RHYTHM WITH OCCASIONAL VENTRICULAR PREMATURE COMPLEXES No previous ECG available for comparison [email or web address]
[2024-12-18 01:45] VITALS: BP 175/95; PULSE 87; RESP 30; TEMP 36.6; O2SAT 100; BMI 23.6
--- NOTE | 2024-12-18 01:45 | XRR_ITS ---
PROCEDURE INFORMATION: Exam: XR Chest Exam date and time: 12/18/2024 1:52 AM Age: 79 years old Clinical indication: Shortness of breath; C/O SOB. ; Additional info: Altered mental status, shortness of breath TECHNIQUE: Imaging protocol: Radiologic exam of the chest. Views: 1 view. COMPARISON: CR XR chest 1V portable [id number] 07/06/2024 11:16 FINDINGS: Lungs: Unremarkable. No consolidation. Pleural spaces: Unremarkable. No pleural effusion. No pneumothorax. Heart/Mediastinum: Stable cardiomediastinal silhouette. Bones/joints: Degenerative changes of the spine seen. XR/XR chest 1V portable [id number] IMPRESSION: No acute findings.
--- NOTE | 2024-12-18 01:48 | ED_ITS ---
HPI - Anxiety 2 General: Chief Complaint: Anxiety Stated Complaint: Confused, SOB Time Seen by Provider: 12/18/24 01:36 History of Present Illness: Patient presents to the ER with family at bedside with complaints of increasing confusion, being very emotional, crying for no known reason, also complains of mild shortness of breath. Patient is very anxious and emotional in triage. This been going on for at least a couple days but been getting worse. Patient called family members tonight because he did not know what was going on and requested they bring him to the ER to be evaluated. Patient should be on 10 mg of Celexa per the chart there has been questions of medical noncompliance. Patient also has a history of dementia. Related Data Previous Rx's ?Medication ?Instructions ?Recorded citalopram 20 mg tablet 10 mg (1/2 x 20 mg) PO DAILY #30 06/08/24 tabs albuterol sulfate 90 mcg/actuation See Rx Instructions .Route 08/23/24 aerosol inhaler .COMPLEX #9 grams Allergies Allergy/AdvReac Type Severity Reaction Status Date / Time No Known Allergies Allergy Verified 07/22/24 13:00 Review of Systems 2 General: Reports: 10 or more systems reviewed and unremarkable except in HPI and below PFSH ED 2 PFSH: Medical History Depression Dementia Esophageal stricture Skin lesion H/O renal calculi Surgical History Hx of colonoscopy No pertinent past surgical history Family History Other Arrhythmia CAD (coronary artery disease) Cardiomyopathy Social History Smoking and tobacco/nicotine status: never used tobacco/nicotine Alcohol intake: current Alcohol intake frequency: holidays/special occasions only Alcohol type: wine Substance/Drug Use: never 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 Physical Exam 2 Const: COMMON NORMALS: no acute distress, average body habitus, patient oriented x3, no limitations, healthy appearing, alert and well nourished HENMT: COMMON NORMALS: normocephalic, atraumatic, hearing grossly normal bilaterally, external ears normal, Normal external nose present, moist oral mucous membranes and oropharynx normal HEAD & SCALP: normocephalic and atraumatic NOSE: Normal external nose present EXTERNAL EAR: Yes external ears normal Neck/C-Spine: COMMON NORMALS: no JVD Chest: COMMONS NORMALS: normal inspection of the chest and normal palpation of entire chest wall Resp: COMMON NORMALS: normal respiratory effort, No retractions, No use of accessory muscles and clear to auscultation bilaterally AUSCULTATION: clear to auscultation bilaterally Cardio: COMMON NORMALS: no JVD, regular rate, regular rhythm, S1 normal heart sound present, S2 normal heart sound present, No gallops present (Cardio), No clicks present (Cardio), No murmurs present (Cardio) and No rub (Cardio) R ATE: regular rate RHYTHM: regular rhythm HEART SOUNDS: S1 normal heart sound present and S2 normal heart sound present GI: COMMON NORMALS: Normal to inspection, nondistended, normoactive bowel sounds present, Soft to palpation, non-tender, No hepatosplenomegaly present and no masses PALPATION: Yes Soft to palpation and Yes No hepatosplenomegaly present Neuro: COMMON NORMALS: patient oriented x3 SENSORIUM/ORIENTATION: Yes alert Course 2 Vital Signs: Vital signs: Vital Signs Temperature 98 F 12/18/24 01:45 Pulse Rate 59 L 12/18/24 03:12 Respiratory Rate 16 12/18/24 03:12 Blood Pressure 145/83 12/18/24 03:12 Pulse Oximetry 98 12/18/24 03:12 Oxygen Delivery Me thod Room Air 12/18/24 01:45 MDM - Anxiety Medical Decision Making Lab work was obtained as well as chest x-ray. And urine drug screen, all essentially unremarkable, patient was instructed these results, patient was instructed also to continue taking his citalopram as directed as this will help with his anxiety and depression. Patient be discharged home. Medical Records I reviewed the patient's medical records. Lab Data I reviewed the patient's lab results. 12/18/24 02:02 12/18/24 02:02 Radiology Impressions Chest X-Ray 12/18/24 01:45 IMPRESSION: No acute findings. Laboratory Results WBC 8.56 10^3/uL (3.29-11.43) 12/18/24 02:02 RBC 5.48 10^6/uL (3.85-5.65) 12/18/24 02:02 Hgb 15.90 g/dL (11.27-16.99) 12/18/24 02:02 Hct 47.6 % (37-53) 12/18/24 02:02 MCV 86.9 fl (82-101) 12/18/24 02:02 MCH 29.0 pg (27-33) 12/18/24 02:02 MCHC 33.4 g/dL (30-55) 12/18/24 02:02 RDW 13.3 % (12.1-15.1) 12/18/24 02:02 Plt Count 231 10^3/cmm (157-399) 12/18/24 02:02 MPV 10.5 fL (7.4-10.4) H 12/18/24 02:02 Neut % (Auto) 54.7 % 12/18/24 02:02 Lymph % (Auto) 36.6 % 12/18/24 02:02 [place] % (Auto) 7.1 % 12/18/24 02:02 Eos % (Auto) 0.9 % 12/18/24 02:02 Baso % (Auto) 0.7 % 12/18/24 02:02 Neut # (Auto) 4.68 10^3/uL (1.8-7.7) 12/18/24 02:02 Lymph # (Auto) 3.1 10^3/uL (0.8-4.8) 12/18/24 02:02 [place] # (Auto) 0.6 10^3/uL (0.2-0.9) 12/18/24 02:02 Eos # (Auto) 0.1 10^3/uL (0.0-0.8) 12/18/24 02:02 Baso # (Auto) 0.1 10^3/uL (0.0-0.1) 12/18/24 02:02 Nucleated RBC % (auto) 0 % 12/18/24 02:02 Nucleated RBCs # 0.0 /100WBC 12/18/24 02:02 Sodium 139 mmol/L (136-145) 12/18/24 02:02 Potassium 3.5 mmol/L (3.5-5.1) 12/18/24 02:02 Chloride 102 mmol/L (98-107) 12/18/24 02:02 Carbon Dioxide 22 mmol/L (22-29) 12/18/24 02:02 Anion Gap 18.5 (5-19) 12/18/24 02:02 BUN 16 mg/dL (8-23) 12/18/24 02:02 Creatinine 1.1 mg/dL (0.7-1.2) 12/18/24 02:02 GFR Calculation Not Reportable 12/18/24 02:02 Glucose 105 mg/dL (65-115) 12/18/24 02:02 Calculated Osmolality 290 mOsm/kg (285-295) 12/18/24 02:02 Calcium 10.3 mg/dL (8.5-10.5) 12/18/24 02:02 Magnesium 2.1 mg/dL (1.7-2.3) 12/18/24 02:02 Total Bilirubin 0.5 mg/dL (0.15-1.2) 12/18/24 02:02 AST 20 U/L (0-40) 12/18/24 02:02 ALT 15 U/L (0-41) 12/18/24 02:02 Alkaline Phosphatase 92 U/L (40-130) 12/18/24 02:02 Troponin T Baseline 19 ng/L (0-15) H 12/18/24 02:02 Troponin T 120 Minute 17.53 ng/L (0-15) H 12/18/24 04:17 Delta Troponin T -1.47 ABS# (0-10) L 12/18/24 04:17 Total Protein 7.4 g/dL (6.6-8.7) 12/18/24 02:02 Albumin 4.9 g/dL (3.5-5.2) 12/18/24 02:02 Globulin 2.5 g/dL (1.3-4.6) 12/18/24 02:02 Urine Color Yellow (Yellow) 12/18/24 01:58 Urine Appearance Clear (CLEAR) 12/18/24 01:58 Urine pH 7 (5-7) 12/18/24 01:58 Ur Specific [place] 1.015 (1.005-1.030) 12/18/24 01:58 Urine Protein Trace (Negative) 12/18/24 01:58 Urine Glucose (UA) Norm (Normal) 12/18/24 01:58 Urine Ketones Negative (Negative) 12/18/24 01:58 Urine Blood Neg (Negative) 12/18/24 01:58 Urine Nitrate Negative (Negative) 12/18/24 01:58 Urine Bilirubin Neg (Negative) 12/18/24 01:58 Urine Urobilinogen Norm mg/dL (Negative) 12/18/24 01:58 Ur Leukocyte Esterase Trace (Negative) H 12/18/24 01:58 Urine RBC 0-2 /hpf (0-2) 12/18/24 01:58 Urine WBC 0-5 /hpf (0-5) 12/18/24 01:58 Ur Squamous Epith Cells 0-5 /hpf (0-5) 12/18/24 01:58 Amorphous Sediment Not Reportable 12/18/24 01:58 Urine Bacteria None seen /hpf (NONE) 12/18/24 01:58 Hyaline Casts 1.65 /lpf 12/18/24 01:58 Urine Opiates Screen Negative ng/mL (Negative) 12/18/24 01:58 Ur Barbiturates Screen Negative ng/mL (Negative) 12/18/24 01:58 Ur Phencyclidine Scrn Negative ng/mL (Negative) 12/18/24 01:58 Ur Amphetamines Screen Negative ng/mL (Negative) 12/18/24 01:58 U Benzodiazepines Scrn Negative ng/mL (Negative) 12/18/24 01:58 Urine Cocaine Screen Negative ng/mL (Negative) 12/18/24 01:58 U Marijuana (THC) Screen Negative ng/mL (Negative) 12/18/24 01:58 All radiology interpretation(s) finalized by discharge Discharge Plan Discharge Patient Disposition: Home Clinical Impression: Acute anxiety, Depression Condition: Stable Prescriptions: No Action albuterol sulfate 90 mcg/actuation HFA aerosol inhaler See Rx Instructions .ROUTE .COMPLEX Qty: 9 6RF Dose Instruction: INHALE 2 PUFFS BY MOUTH EVERY 6 HOURS NEEDED FOR SHORTNESS OF BREATH AND FOR WHEEZING Rx Instructions: INHALE 2 PUFFS BY MOUTH EVERY 6 HOURS NEEDED FOR SHORTNESS OF BREATH AND FOR WHEEZING citalopram 20 mg Tablet 10 mg PO DAILY Qty: 30 0RF Discharge Orders: Discharge ED (Routine); Ordered 12/18/24 Ordered By: Robi Cronin Referrals: John Polo MD [Primary Care Provider] - 1 week Patient Instructions: Anxiety (ED), Depression (ED) Activity Restrictions/Additional Instructions: Your evaluation in the ER did not show any acute cause of your symptomatology. Your records shows you are on citalopram 10 mg daily this does help with anxiety and depression. Please continue to take it as directed. Please follow-up with your family proximal physician within next 7 to 10 days for further evaluation treatment. Print Language: Bur[place]ian Coding Level of Care Code ED Optoelectronics Engineer for Zhang Camacho
[2024-12-18] MEDS: LORazepam 2 mg/mL INJ 1 mL 1 MG IVP (02:08)
[2024-12-18 02:09] LABS: Basophils # 0.1 10^3/uL (0.0-0.1); Basophils % 0.7 %; Eosinophils # 0.1 10^3/uL (0.0-0.8); Eosinophils % 0.9 %; Hematocrit 47.6 % (37-53); Lymphocytes # 3.1 10^3/uL (0.8-4.8); Lymphocytes % 36.6 %; Mean Corpuscular HGB Conc 33.4 g/dL (30-55); Mean Corpuscular Volume 86.9 fl (82-101); Mean Platelet Volume 10.5 fL (7.4-10.4); Monocytes # 0.6 10^3/uL (0.2-0.9); Monocytes % 7.1 %; Neutrophils # 4.68 10^3/uL (1.8-7.7); Neutrophils % 54.7 %; Nucleated Red Blood Cells % 0 %; Platelet Count 231 10^3/cmm (157-399); Red Blood Count 5.48 10^6/uL (3.85-5.65); Red Cell Distribution Width 13.3 % (12.1-15.1); White Blood Count 8.56 10^3/uL (3.29-11.43)
[2024-12-18 02:21] LABS: Bacteria Urine None Seen /hpf; Hyaline Casts Urine 1.65 /lpf; RBC Urine 0-2 /hpf (0-2); Squamous Epithelial Cell Urine 0-5 /hpf (0-5); WBC Urine 0-5 /hpf (0-5)
[2024-12-18 02:25] LABS: Troponin(5th) Baseline 19 ng/L (0-15)
[2024-12-18 02:27] LABS: Add Urine Microscopic? YES; Bilirubin Urine Neg (Negative); Blood Urine Neg (Negative); Glucose Urine UA Norm (Normal); Ketones Urine Negative (Negative); Nitrate Urine Negative (Negative); Protein Urine Trace (Negative); Specific Gravity, Urine 1.015 (1.005-1.030); Urine Appearance Clear (CLEAR); Urine Color Yellow (Yellow); pH Urine 7 (5-7)
[2024-12-18 02:28] LABS: Alanine Aminotransferase 15 U/L (0-41); Albumin Level 4.9 g/dL (3.5-5.2); Alkaline Phosphatase 92 U/L (40-130); Anion Gap 18.5 (5-19); Aspartate Amino Transferase 20 U/L (0-40); Blood Urea Nitrogen 16 mg/dL (8-23); Calcium 10.3 mg/dL (8.5-10.5); Carbon Dioxide 22 mmol/L (22-29); Chloride 102 mmol/L (98-107); Creatinine Clr Calc Pharmacy 57.7236; Globulin 2.5 g/dL (1.3-4.6); Glucose 105 mg/dL (65-115); Magnesium 2.1 mg/dL (1.7-2.3); Osmolality Calculated 290 mOsm/kg (285-295); Potassium 3.5 mmol/L (3.5-5.1); Sodium 139 mmol/L (136-145); Total Bilirubin 0.5 mg/dL (0.15-1.2); Total Protein 7.4 g/dL (6.6-8.7)
[2024-12-18 02:28] LABS: Amphetamines Screen Urine Negative (Negative); Barbiturates Screen Urine Negative (Negative); Benzodiazepines Screen Urine Negative (Negative); Cocaine Screen Urine Negative (Negative); Leukocyte Esterase Urine Trace (Negative); Opiate Screen Urine Negative (Negative); PCP Screen Urine Negative (Negative); THC Screen Urine Negative (Negative); Urobilinogen Urine Norm (Negative)
[2024-12-18 03:12] VITALS: BP 145/83; PULSE 59; RESP 16; O2SAT 98
--- NOTE | 2024-12-18 03:46 | ECG_ITS ---
[facility] Date: 2024-[facility]18 Pat Name: Everardo Valdes Department: Room: Gender: Male Tip Tester: : 1945 Requested By: Robi Cronin Order Number: [id number] Reading MD: Measurements Intervals [place] Rate: 58 P: 72 [place]: 172 QRS: 41 QRSD: 98 T: 77 QT: 424 QTc: 419 Interpretive Statements SINUS BRADYCARDIA WITH OCCASIONAL SUPRAVENTRICULAR PREMATURE COMPLEXES [email or web address]
[2024-12-18 04:44] LABS: Troponin 5 2HR 17.53 ng/L (0-15)
[2024-12-18 04:47] LABS: Troponin 5 2HR Delta -1.47 ABS# (0-10)
[2024-12-18 04:51] VITALS: BP 157/85; PULSE 74; RESP 16; O2SAT 98
== END 2024-12-18 05:04 | disposition home or self-care (01) ==
PROVIDERS: Emergency Provider Emergency Medicine; PCP Family Medicine
DX: F41.8 Other specified anxiety disorders (principal); F32.A Depression, unspecified
CPT/HCPCS: 36415; 71045; 80053; 80306; 81001; 83735; 84484; 85025; 93005; 96374; 99285; J2060

== ENCOUNTER 2025-05-12 21:25 | Emergency (ER) | payer MEDICARE, SELFPAY ==
[2025-05-12 21:26] VITALS: BP 130/75; PULSE 71; RESP 24; TEMP 36.5; O2SAT 95; BMI 22.2
--- NOTE | 2025-05-12 21:28 | XRR_ITS ---
PROCEDURE INFORMATION: Exam: XR Chest Exam date and time: 05/12/2025 9:32 PM Age: 80 years old Clinical indication: Pain; Shortness of breath; Chest pressure; Additional info: Cp TECHNIQUE: Imaging protocol: Radiologic exam of the chest. Views: 1 view. COMPARISON: CR XR chest 1V portable [id number] 12/18/2024 1:52 AM FINDINGS: Lungs: Stable opacities left apex consistent with pleural-parenchymal scarring. No acute process. Pleural spaces: Unremarkable. No pleural effusion. No pneumothorax. Heart/Mediastinum: Mild tortuosity thoracic aorta. No cardiomegaly. Bones/joints: Mild right convexity scoliosis with mild degenerative changes. Upper abdomen: Unremarkable. XR/XR chest 1V portable [id number] IMPRESSION: No acute findings.
--- NOTE | 2025-05-12 21:28 | ECG_ITS ---
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 Measurements Intervals [place] Rate: 72 P: 79 VA: 165 QRS: -26 QRSD: 100 T: 76 QT: 404 QTc: 443 Interpretive Statements SINUS RHYTHM WITH OCCASIONAL SUPRAVENTRICULAR PREMATURE COMPLEXES BORDERLINE LEFT AXIS DEVIATION [QRS AXIS < -20] Compared to ECG 12/18/2024 03:46:04 Sinus bradycardia no longer present Electronically Signed On 05-13-2025 14:07:26 CDT by Lino Fernandes M.D. [email or web address] [id number]
--- NOTE | 2025-05-12 21:36 | ECG_ITS ---
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 Measurements Intervals [place] Rate: 72 P: 79 DC: 165 QRS: -26 QRSD: 100 T: 76 QT: 404 QTc: 443 Interpretive Statements SINUS RHYTHM WITH OCCASIONAL SUPRAVENTRICULAR PREMATURE COMPLEXES BORDERLINE LEFT AXIS DEVIATION [QRS AXIS < -20] Compared to ECG 12/18/2024 03:46:04 Sinus bradycardia no longer present Electronically Signed On 05-14-2025 08:42:57 CDT by Leighton Abbott M.D. [id number]
[2025-05-12 22:10] LABS: Hematocrit 47.6 % (37-53); Hemoglobin 15.60 g/dL (11.27-16.99); Mean Corpuscular HGB Conc 32.8 g/dL (30-55); Mean Corpuscular Hemoglobin 28.9 pg (27-33); Mean Corpuscular Volume 88.1 fl (82-101); Nucleated Red Blood Cells % 0 %; Platelet Count 204 10^3/cmm (157-399); Red Blood Count 5.40 10^6/uL (3.85-5.65); White Blood Count 8.14 10^3/uL (3.29-11.43)
[2025-05-12 22:26] LABS: Troponin(5th) Baseline 15 ng/L (0-15)
[2025-05-12 22:28] LABS: Alanine Aminotransferase 16 U/L (0-41); Albumin Level 4.8 g/dL (3.5-5.2); Alkaline Phosphatase 87 U/L (40-130); Aspartate Amino Transferase 25 U/L (0-40); Blood Urea Nitrogen 17 mg/dL (8-23); Calcium 10.4 mg/dL (8.5-10.5); Carbon Dioxide 21 mmol/L (22-29); Chloride 100 mmol/L (98-107); Creatinine Clr Calc Pharmacy 60.9346; Globulin 2.4 g/dL (1.3-4.6); Glucose 95 mg/dL (65-115); Osmolality Calculated 289 mOsm/kg (285-295); Sodium 139 mmol/L (136-145); Total Protein 7.2 g/dL (6.6-8.7)
[2025-05-12 22:36] LABS: Anion Gap 22.3 (5-19); Potassium 4.3 mmol/L (3.5-5.1)
== END 2025-05-12 22:26 | disposition left against medical advice (07) ==
LOC: ER 21:28
PROVIDERS: Student in an Organized Health Care Education/Training Program; Emergency Provider Family Medicine; PCP Family Medicine
DX: Z53.21 Procedure and treatment not carried out due to patient leaving prior to being seen by health care provider (principal); I49.1 Atrial premature depolarization; R06.02 Shortness of breath; R07.89 Other chest pain
CPT/HCPCS: 36415; 71045; 80053; 84484; 85025; 93005; 99285

== ENCOUNTER 2025-05-20 08:02 | Outpatient (CLI) | payer MEDICARE, SELFPAY ==
--- NOTE | 2025-05-20 08:30 | FL_ITS ---
WS: [id number] Exam: FL barium swallow [id number] Date/Time of Exam: 05/20/2025 8:08 AM Reason For Exam: Fluoroscopy time: 2min [id number] minutes # of spot films: Oropharyngeal phase of swallowing was normal. There is moderate stenosis of the cervical esophagus along the posterior margin at the C5 level. This may be extrinsic. Additionally there is a significant stenosis at the gastroesophageal junction. Small sliding hiatal hernia is noted. The remainder of the esophagus was patent with normal motility. FL/FL barium swallow [id number] IMPRESSION: 1. Posterior compression of the cervical esophagus at C5 which causes moderate stenosis. This may be extrinsic. 2. Significant stenosis at the GE junction adjacent to a small sliding hiatal h ernia. Recommendations. Direct visualization with endoscopy would be recommended for f urther work-up.
== END 2025-05-20 08:03 | disposition home or self-care (01) ==
LOC: RAD 08:05
PROVIDERS: PCP Family Medicine; Visit Provider Family Medicine
DX: R13.10 Dysphagia, unspecified (principal); M48.02 Spinal stenosis, cervical region; K22.2 Esophageal obstruction; K44.9 Diaphragmatic hernia without obstruction or gangrene
CPT/HCPCS: 74220

== ENCOUNTER → 2025-07-05 14:23 | Outpatient (BNVA) | payer MEDICARE, SELFPAY | PROVIDERS: PCP Family Medicine; Visit Provider Surgery | DX: R13.10 Dysphagia, unspecified (principal); R03.0 Elevated blood-pressure reading, without diagnosis of hypertension | CPT/HCPCS: 99214 ==

== ENCOUNTER 2025-07-21 06:51 | Day surgery (SDC) | payer MEDICARE, SELFPAY ==
[2025-07-21 07:03] VITALS: BMI 22.2
[2025-07-21 07:14] VITALS: BP 154/85; PULSE 63; RESP 18; TEMP 36.3; O2SAT 96
--- NOTE | 2025-07-21 07:39 | P.ANESASSM_ITS ---
Pre-Anesthetic Assessment Height/Weight: Height 1.78 m Weight 70.307 kg Temp Pulse Resp BP Pulse Ox O2 Del Method 97.3 F L 63 18 154/85 96 Room Air 07/21/25 07:14 07/21/25 07:14 07/21/25 07:14 07/21/25 07:14 07/21/25 07:14 07/21/25 07:14 Preop Diagnosis: dysphagia Operation Date: 07/21/25 08:20 Proposed Procedures p EGD Dilation W/ Balloon 99354 R13.10(Not Applicable) - Vikram Crowe MD Familial anesthetic complications: none Was Beta Aranza taken within 24 hours: N/A Was Clonidine taken within 24 hours: N/A Last intake: Intake Last Liquid Date 07/20/25 Last Liquid Time 18:00 Last Solid Date 07/20/25 Last Solid Time 08:00 Social No tobacco Exam alert, clear to auscultation bilaterally and regular rate & rhythm mild dementia Airway Submandibular: within normal limits Cervical ROM: within normal limits Mallampati: Class I Pulmonary Asthma (mild asthma) CV/HEM Stable Angina has had a heart cath without significant blockage None reported Hepatic None reported GI difficulty swallowing Metabolic None reported Musc/skel Osteoarthritis/DJD Neuropsych Dementia Anesthetic Plan ASA status: 3 Anesthesia: MAC Risk of > 500 ml blood loss (7ml/kg in children): No Other Pertinent Information Son is POA Medications/Allergies Home Medications ?Medication ?Instructions ?Recorded ?Confirmed ?Last Taken ?Type citalopram 10 mg tablet 10 mg PO DAILY #90 tabs 04/0 01/1407/18/25 07/18/25 Rx donepezil 10 mg tablet 10 mg PO DAILY #30 tabs 03/2207/18/25 07/18/25 Rx albuterol sulfate 90 mcg/actuation See Rx Instructions .Route 04/05/25 07/18/25 Unknown Rx aerosol inhaler .COMPLEX #18 grams Allergies Allergy/AdvReac Type Severity Reaction Status Date / Time No Known Allergies Allergy Verified 07/05/25 14:30 Current Medications Generic Name Dose Route Start Last Admin Trade Name Freq PRN Reason Stop Dose Admin Sodium Chloride 1,000 mls @ 15 mls/hr 07/21/25 06:57 07/21/25 07:15 Sodium Chloride 0.9% IV 07/22/25 06:56 15 mls/hr .Q24H PRN Administration COLONOSCOPY FLUIDS PFSH Anesthesia Medical History (Updated 04/01/25 @ 10:59 by John Polo MD) Dementia Depression Esophageal stricture Skin lesion H/O renal calculi Surgical History (Updated 07/05/25 @ 14:34 by SHARMILA Stallings) Hx of colonoscopy No pertinent past surgical history Family History Other Arrhythmia CAD (coronary artery disease) Cardiomyopathy Social History Smoking and tobacco/nicotine status: current every day tobacco/nicotine user (chewing tobacco) smokeless tobacco Smokeless tobacco user: chewing tobacco Smokeless tobacco details: 1 bag lasts 1.5-2 weeks Alcohol intake: never Substance/Drug Use: never 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
--- NOTE | 2025-07-21 07:46 | P.HPUD_ITS ---
Surgery/Procedure H&P Update DATE OF PROCEDURE: July 21, 2025 DATE H&P PERFORMED: 07/05/25 H&P UPDATE INFORMATION: I have reviewed H&P completed within last 30 days, I have examined patient prior to procedure, No changes to prior documentation, H&P is in [facility] EMR on date indicated and Risks and benefits of the procedure reviewed PREOP DIAGNOSIS: dysphagia PLANNED PROCEDURE: Operation Date: 07/21/25 08:20 Proposed Procedures p EGD Dilation W/ Balloon [id number] R13.10(Not Applicable) - Vikram Crowe MD
[2025-07-21 08:28] VITALS: BP 98/63; PULSE 61; RESP 20; TEMP 36.1; O2SAT 94
--- NOTE | 2025-07-21 09:25 | ANE.PACU2 ---
Inpatient post-anesthesia follow up: Airway intact: Yes Vital signs: Temperature 97.0 F Pulse Rate 61 Respiratory Rate 20 Blood Pressure 98/63 Pulse Oximetry 94 Oxygen Delivery Me thod Nasal Cannula Oxygen Flow Rate 2 Fraction of Inspir ed Oxygen Hydration adequate: Yes Nausea and vomiting: No Pain level: 1 Mental status: Baseline
== END 2025-07-21 09:29 | disposition home or self-care (01) ==
PROVIDERS: PCP Family Medicine; Visit Provider Surgery
DX: R13.10 Dysphagia, unspecified (principal); K21.9 Gastro-esophageal reflux disease without esophagitis; J45.909 Unspecified asthma, uncomplicated; I20.89 Other forms of angina pectoris; F03.90 Unspecified dementia, unspecified severity, without behavioral disturbance, psychotic disturbance, mood disturbance, and anxiety; F32.A Depression, unspecified; F17.220 Nicotine dependence, chewing tobacco, uncomplicated
CPT/HCPCS: 43239; 88305; J2704; J7030